=== PATIENT | female | born 1950 | race Caucasian/White ===

== ENCOUNTER 2017-05-30 14:02 | Emergency (ER) | payer MEDICAID ==
[~2017-05-30] VITALS: Ht 160 cm; Wt 47.2 kg
[2017-05-30] MEDS ORDERED: TDAP DIPH,PERTUSS,TET VAC/PF 0.5 ML DISP.SYRIN IM ONE ×2 (14:53→15:45)
[2017-05-30] MEDS ORDERED: LIDOCAINE HCL 1% 20 ML VIAL IJ ONE (15:34)
[2017-05-30] MEDS ORDERED: HYDROCODONE/APAP 5-325MG TABLET PO ONE (16:10)
[2017-05-30] MEDS ORDERED: HYDROCODONE/APAP 5-325MG TABLET ONE (16:49)
--- NOTE | 2017-05-30 18:03 | NUR ---
MSE COMPLETED, FACIAL LACERATION SUTURED/CLEANED. MEDS ADMINISTERED , PT D/'D HOME, ACI/RX X 2 GIVEN. PT STAED DECREASED PAIN, GOT RIDE HOME,TOOK ALL BELONGINGS.
[2017-05-30 18:07] VITALS: BP 138/72
== END 2017-05-30 18:08 | disposition home or self-care (01) ==
LOC: ER 14:02
DX: S02.2XXA Fracture of nasal bones, initial encounter for closed fracture (principal); S01.81XA Laceration without foreign body of other part of head, initial encounter; S01.21XA Laceration without foreign body of nose, initial encounter; I10 Essential (primary) hypertension; Z88.0 Allergy status to penicillin; Z85.118 Personal history of other malignant neoplasm of bronchus and lung; W18.30XA Fall on same level, unspecified, initial encounter; Y93.89 Activity, other specified; Y92.89 Other specified places as the place of occurrence of the external cause; Y99.8 Other external cause status
CPT/HCPCS: 70450; 70486; 73070; 73090; 90715; A4217; A4663; J3490